=== PATIENT | female | born 1960 | race Caucasian/White ===

== ENCOUNTER → 2017-08-30 | Outpatient (CLI) | payer BC ==
[~2017-08-30] MED LIST: ATOR-22 PO; BIOF500T PO; CALC600T9 PO; METR500T PO; MISC1TAB PO; MULT-506 PO; PROB1TAB16 PO
== END | disposition home or self-care (01) ==
LOC: C.LABMFLN 11:25
PROVIDERS: ATTEND Physician Assistant
DX: R21 Rash and other nonspecific skin eruption (principal)

== ENCOUNTER → 2018-02-20 | Outpatient (CLI) | payer BC ==
[2018-02-20 18:14] LABS: INR 0.9 (0.9-1.1); PTT PATIENT 21.9 SECONDS (21.0-31.0)
== END | disposition home or self-care (01) ==
LOC: C.LABMFLN 16:09
PROVIDERS: ATTEND Physician Assistant
DX: Z01.818 Encounter for other preprocedural examination (principal)

== ENCOUNTER → 2018-06-07 | Outpatient (CLI) | payer BC | END | disposition home or self-care (01) | LOC: C.LABMFLN 09:32 | PROVIDERS: ATTEND Physician Assistant | DX: E78.5 Hyperlipidemia, unspecified (principal) ==

== ENCOUNTER 2022-09-28 06:03 | Observation (INO) ==
--- NOTE | 2022-09-07 14:55 | PAT Medication Instructions ---
Medication Instructions Date of Service September 07, 2022 Home Medications Medication Instructions Recorded diphenoxylate-atropine 2.5 2 tab PO TID PRN diarrhea #1 tab 06/08/ mg-0.025 mg tablet (Lomotil) propranolol 120 mg capsule,24 120 mg PO .COMPLEX #30 caps 10/12/ hr,extended release clobetasol 0.05 % scalp solution 1 applic topical .COMPLEX PRN 01/26/22 seborrheic dermatitis #50 mL atorvastatin 20 mg tablet 20 mg PO QPM #90 tabs 02/16/22 Lactobacillus acidophilus-Bifidobac.animalis 31 billion cell capsule 1 cap PO QPM acetaminophen 650 mg tablet,extended release 1,300 mg PO DAILY PRN Pain calcium carbonate 500 mg-vitamin D3 5 mcg (200 unit) tablet 1 tab PO BID metronidazole 500 mg tablet 500 mg PO PRN PRN ud ascorbate calcium (vitamin C) 500 mg tablet 500 mg PO QPM yfwqzohtybed-xhurxglz-twhenf tablet 1 tab PO QAM diphenoxylate-atropine 2.5 mg-0.025 mg tablet (Lomotil) 2 tab PO TID PRN diarrhea propranolol 120 mg capsule,24 hr,extended release 120 mg PO .COMPLEX pantoprazole 20 mg tablet,delayed release 40 mg PO QAM clobetasol 0.05 % scalp solution 1 applic topical .COMPLEX PRN seborrheic dermatitis atorvastatin 20 mg tablet 20 mg PO QPM ciprofloxacin HCl 500 mg tablet (Cipro) 500 mg PO BID PRN ud glucosamine-chondroitin 250 mg-200 mg tablet (Osteo Bi-Flex) 2 tab PO QAM ondansetron HCl 4 mg tablet 4 mg PO Q12H PRN Nausea tamsulosin 0.4 mg capsule 0.4 mg PO QPM acyclovir 400 mg tablet 400 mg PO QPM nitroglycerin 0.4 mg sublingual tablet 0.4 mg sublingual Q5M PRN Chest Pain Continue as directed metronidazole 500 mg tablet 500 mg PO PRN PRN ud ciprofloxacin HCl 500 mg tablet (Cipro) 500 mg PO BID PRN ud acyclovir 400 mg tablet 400 mg PO QPM nitroglycerin 0.4 mg sublingual tablet 0.4 mg sublingual Q5M PRN Chest Pain (if needed) clobetasol 0.05 % scalp solution 1 applic topical .COMPLEX PRN seborrheic dermatitis (if needed) STOP taking 2 weeks before surgery (or as soon as possible if surgery is within 2 weeks) glucosamine-chondroitin 250 mg-200 mg tablet (Osteo Bi-Flex) 2 tab PO QAM mzsixgkzgbjq-oiwhdwus-ykjchz tablet 1 tab PO QAM DO NOT take the morning of surgery calcium carbonate 500 mg-vitamin D3 5 mcg (200 unit) tablet 1 tab PO BID diphenoxylate-atropine 2.5 mg-0.025 mg tablet (Lomotil) 2 tab PO TID PRN diarrhea Take morning of surgery With a small sip of water, OTHERWISE NOTHING TO EAT OR DRINK AFTER MIDNIGHT: acetaminophen 650 mg tablet,extended release 1,300 mg PO DAILY PRN Pain (if needed) pantoprazole 20 mg tablet,delayed release 40 mg PO QAM ondansetron HCl 4 mg tablet 4 mg PO Q12H PRN Nausea (if needed) Take evening before surgery Lactobacillus acidophilus-Bifidobac.animalis 31 billion cell capsule 1 cap PO QPM acetaminophen 650 mg tablet,extended release 1,300 mg PO DAILY PRN Pain (if needed) calcium carbonate 500 mg-vitamin D3 5 mcg (200 unit) tablet 1 tab PO BID ascorbate calcium (vitamin C) 500 mg tablet 500 mg PO QPM diphenoxylate-atropine 2.5 mg-0.025 mg tablet (Lomotil) 2 tab PO TID PRN diarrhea (if needed) propranolol 120 mg capsule,24 hr,extended release 120 mg PO .COMPLEX atorvastatin 20 mg tablet 20 mg PO QPM ondansetron HCl 4 mg tablet 4 mg PO Q12H PRN Nausea (if needed) tamsulosin 0.4 mg capsule 0.4 mg PO QPM Other Notes If you have any questions please call us at [phone] or [phone] or [phone] or [phone]
--- NOTE | 2022-09-09 11:36 | Anesthesiology Consultation ---
Date of Service September 09, 2022 Assessment & Plan (1) Encounter for pre-operative examination: - s/p renal stone extraction and stent placement 09/06/22, abnormal UAs not repeated today. Pt has upcoming stent removal planned 09/13/22. Kera with [facility] made aware and they will further coordinate repeat UA and culture ordered by Dr. Herrmann at reported upcoming PCP clearance given ongoing urologic issues at this time. - PCP 08/24/22 [place]: "...kidney stone on left side...Continue medications prescribed and f/u with urology as scheduled. Hydronephrosis concurrent with and due to calculi of kidney and ureter: Lung nodule: Will order CT scan for f/u lung nodule in 6 months. Explained that this is incidental finding and common. They are followed usually for about 2 years for stability/change...Herpes simplex type 2 infection:Pt will restart daily suppressive therapy d/t recurrence of outbreaks without this medication. She will call for further problems..." Chart Review Chart Review: Acceptable Risk for Surgery and Patient seen in Pre Admission Testing Teaching & Discussion Pre-Anesthesia Teaching/Discussion Notes: Instructed NPO after midnight before surgery, except medications with 15 cc of water. Medication instructions provided according to the PAT guidelines. History Surgery Operation Date: 09/28/22 12:55 Proposed Procedures p C6-C7 Anterior Cervical Discectomy and Fusion with Stand Alone Spacer, Spinal Cord Monitoring - Jorgito Herrmann, DO Height/Weight Height: 5 ft 7 in Weight: 72.575 kg Allergies Allergy/AdvReac Type Severity Reaction Status Date / Time codeine Allergy Unknown N/V, Verified 09/03/22 13:25 severe body aches enoxaparin [From Lovenox] Allergy hives Verified 09/03/22 13:25 meperidine [From Demerol] Allergy nausea Verified 09/03/22 13:25 immuran Allergy nausea Uncoded 09/03/22 13:25 Medications Home Medications Medication Instructions Recorded Confirmed Last Taken Lactobacillus 1 cap PO QPM 05/07/19 09/03/22 Unknown acidophilus-Bifidobac.animalis 31 billion cell capsule acetaminophen 650 mg 1,300 mg PO DAILY PRN Pain 05/07/19 09/03/22 Unknown tablet,extended release calcium carbonate 500 mg-vitamin 1 tab PO BID 05/07/19 09/03/22 Unknown D3 5 mcg (200 unit) tablet metronidazole 500 mg tablet 500 mg PO PRN PRN ud 05/07/19 09/03/22 Unknown ascorbate calcium (vitamin C) 500 500 mg PO QPM 06/01/19 09/03/22 Unknown mg tablet afgypqcbogdg-rulehssq-disicv tablet 1 tab PO QAM 06/01/19 09/03/22 Unknown diphenoxylate-atropine 2.5 2 tab PO TID PRN diarrhea #1 tab 06/08/19 09/03/22 Unknown mg-0.025 mg tablet (Lomotil) propranolol 120 mg capsule,24 120 mg PO .COMPLEX #30 caps 10/12/21 09/03/22 Unknown hr,extended release pantoprazole 20 mg tablet,delayed 40 mg PO QAM 12/02/21 09/03/22 Unknown release clobetasol 0.05 % scalp solution 1 applic topical .COMPLEX PRN 01/26/22 09/03/22 Unknown seborrheic dermatitis #50 mL ciprofloxacin HCl 500 mg tablet 500 mg PO BID PRN ud 05/20/22 09/03/22 Unknown (Cipro) glucosamine-chondroitin 250 mg-200 2 tab PO QAM 05/20/22 09/03/22 Unknown mg tablet (Osteo Bi-Flex) ondansetron HCl 4 mg tablet 4 mg PO Q12H PRN Nausea 08/24/22 09/03/22 Unknown tamsulosin 0.4 mg capsule 0.4 mg PO QPM 08/24/22 09/03/22 Unknown acyclovir 400 mg tablet 400 mg PO QPM 09/03/22 09/03/22 Unknown nitroglycerin 0.4 mg sublingual 0.4 mg sublingual Q5M PRN Chest 09/03/22 09/03/22 Unknown tablet Pain atorvastatin 20 mg tablet 20 mg PO QPM #90 tabs 09/09/22 Unknown Past Medical History Medical History (Updated 09/09/22 @ 11:40 by Risa Dyer PA-C) Chronic headache reason for propranolol GERD (gastroesophageal reflux disease) controlled, stable per pt Hiatal hernia History of cervical cancer 1994 treated surgically History of nephrolithiasis Hyperlipidemia Kidney stone at present --- planning for cystoscopy with stone extraction 09/06 GHS- stent in place with planned removal 09/13 PONV (postoperative nausea and vomiting) denies needing scop patch Ulcerative colitis hx Ureteral stent present Patient denies h/o stroke, seizures, heart attack, heart failure, DM, HTN, blood clots or blood transfusions. Exercise / Class Metabolic Activity II 4-5 Yardwork/Stairs/Walk up hill (denies CP or SOB with 1 FOS) Past Family History Family History Mother Diabetes Breast cancer Stroke Grandmother Diabetes Myocardial infarction Breast cancer Father Heart disease Myocardial infarction Daughter Cancer Other No family history of adverse response to anesthesia Denies family history of Ovarian cancer Prostate cancer Colorectal cancer Hypertension Past Surgical History Surgical History (Updated 09/09/22 @ 11:41 by Risa Dyer PA-C) H/O arthroscopic knee surgery bilateral H/O breast biopsy benign H/O section x2 H/O hemorrhoidectomy H/O shoulder surgery left Dr. Ko History of bowel resection History of colonoscopy History of conization of cervix History of cystoscopy History of esophagogastroduodenoscopy (EGD) History of ileostomy History of lithotripsy History of reversal of ileostomy S/P foot surgery, right Past Anesthesia History No Hx of Anesthesia Complications and No Family Hx of Anesthesia Complications History of PONV No Hx of Motion Sickness and History of PONV (denies needing scop patch) STOP BANG Total 1 Social History Smoking Status: Former smoker Do You Dip or Chew Tobacco: No Smoking End Date: years ago Hx Alcohol Use: No Hx Substance Use: No substance use type: does not use Review of Systems Snoring, denies witnessed apneas. Patient denies chest pain, shortness of breath, dyspnea on exertion, fever, chills, cough, wheezing, or palpitations. Physical Exam Vital Signs Vitals BP 106/72 P 72 TEMP 97.9 SP02 97% on RA RESP 17 Physical Full cervical extension range of motion without pain TMD 3.5 finger breadths Mallampati Score 3 Dentition: intact, front lower partial, several caps throughout; denies chipped or loose teeth, crowns, implants or bridges Lungs: normal respiratory effort. Clear throughout to auscultation, no adventitious breath sounds Cardiac: regular rate and rhythm, no murmurs noted Carotid arteries: negative bruit bilat Lab Results Anesthesia Preop Results Results Anesthesia Widget: WBC 5.81 K/ul (4.8-10.8) 09/09/22 Hgb 13.8 g/dl (12.0-16.0) 09/09/22 Hct 41.7 % (34.1-44.9) 09/09/22 Plt 320 K/uL (130-400) 09/09/22 Na 140 mmol/L (136-145) 09/09/22 K 4.2 mmol/L (3.5-5.1) 09/09/22 Cl 105 mmol/L (98-107) 09/09/22 CO2 30 mmol/L (21-32) 09/09/22 BUN 13 mg/dl (6-23) 09/09/22 Creat 0.71 mg/dl (0.6-1.2) 09/09/22 Glucose Level 108 mg/dl (70-99(Fasting)) H 09/09/22 PT 9.7 Seconds (9.0-12.0) 09/09/22 PTT 23.2 Seconds (21.0-31.0) 09/09/22 INR 0.9 (0.9-1.1) 09/09/22 Blood Type AB Positive 09/09/22 Antibody Screen NEGATIVE 09/09/22 Testing Laboratory Results 08/30/22 urine culture: no significant growth UA: cloudy, large blood, > 300 protein, moderate esterase, 50+ RBC, 50+ WBC, 1-4 calcium oxalate, hyaline cast 1-4, bacteria 0-25 Electrocardiogram Date: 09/09/22 NSR, rate 74 bpm Chest X-Ray Date: 09/09/22 No acute chest disease. Stress Test Date: 05/23/17 Exercise MPHR 98% METS 8 Normal without resting LV wall motion abnormalities or inducible ischemia EF 65% Cervical Spine Date: 05/20/22 x-ray Moderate degenerative change of the cervical spine CT 10/13/[address] of neck Other Testing CT abdomen pelvis 08/15/22 9 x 5 mm obstructing stone at the left UVJ with moderate hydronephrosis 7 mm right middle lobe pulmonary nodule COVID-19 Risk Screen Screening Information COVID-19 Screen Date: 09/09/22 Exposure 21 Days Family/Household +COVID Last 21 Days: No Exposure 10 Days Any COVID Exposure Last 10 Days: No Symptoms Last 10 Days Experienced COVID Sx Last 10 Days: No + COVID 0-90 Days COVID + in Last 0-90 Days: No
[~2022-09-28 06:03] MED LIST changes: +ACETAMINOPHEN 500 MG TAB PO SCH; -ATOR-22 PO; -BIOF500T PO; -CALC600T9 PO; +CeleBREX 200 MG CAP PO SCH; +GABAPENTIN 600 MG DOSE PO SCH; +LR 15ML/HR IV SCH; -METR500T PO; -MISC1TAB PO; -MULT-506 PO; -PROB1TAB16 PO; +ceFAZolin 2000MG 2,000 MG/15 ML SYR IV SCH
[2022-09-28] MEDS ORDERED: MIDAZOLAM HCL 1 MG/ML 2ML VIAL ONE (07:00)
[2022-09-28] MEDS ORDERED: KETAMINE 50 MG/5 ML SYRINGE ONE (07:00)
[2022-09-28] MEDS ORDERED: DEXAMETHASONE SOD INJ 4 MG/ML VIAL ONE (07:00)
[2022-09-28] MEDS ORDERED: LIDOCAINE 2% MPF LOCAL 5 ML VIAL INFIL ONE (07:00)
[2022-09-28] MEDS ORDERED: ONDANSETRON INJ 2 MG/ML 2 ML VIAL ONE ×2 (07:00→09:53)
[2022-09-28] MEDS ORDERED: fentaNYL citrate 100 MCG/2 ML VIAL ONE ×2 (07:00→08:28)
[2022-09-28] MEDS ORDERED: PROPOFOL IV EMULSION 10 MG/ML 20 ML VIAL IV ONE (07:00)
[2022-09-28] MEDS ORDERED: ceFAZolin 330 MG/ML 1 GM VIAL ONE (07:07)
[2022-09-28] MEDS ORDERED: DexMEDEtomidine HCL IV 100 MCG/ML VIAL IV ONE (07:11)
[2022-09-28] MEDS ORDERED: ATROPINE SULFATE 0.1 MG/ML 10ML SYR IV PRN (07:27)
[2022-09-28] MEDS ORDERED: ONDANSETRON INJ 2 MG/ML 2 ML VIAL IV PRN ×2 (07:27→10:42)
[2022-09-28] MEDS ORDERED: ePHEDrine sulfate 50 MG/ML AMP IV PRN (07:27)
--- NOTE | 2022-09-28 07:29 | History & Physical Bridge Note ---
Date of Service September 28, 2022 History & Physical Bridge Note I have examined the patient, reviewed the History & Physical and in the interval since the performance of the History & Physical I have noted the following changes of clinical significance: no changes noted
[2022-09-28] MEDS ORDERED: SCOPOLAMINE 1 MG TDSY TD ONE (07:31)
--- NOTE | 2022-09-28 07:31 | History & Physical Report ---
Date of Service September 28, 2022 Assessment & Plan (1) Cervical stenosis of spinal canal: Plan: C6-C7 anterior cervical discectomy and fusion with stand-alone spacer History of Present Illness Chief Complaint: Neck and arm pain Primary Care Provider: Debi Griffin DO This is a 61-year-old female presents with chronic persistent neck and arm pain after failing such course. She is here for surgical invention. Allergies Allergy/AdvReac Type Severity Reaction Status Date / Time codeine Allergy Unknown N/V, Verified 09/28/22 06:30 severe body aches enoxaparin [From Lovenox] Allergy hives Verified 09/28/22 06:30 meperidine [From Demerol] Allergy nausea Verified 09/28/22 06:30 azathioprine [From Imuran] AdvReac Nausea Verified 09/28/22 06:30 Home Medications Medication Instructions Recorded Confirmed Type Lactobacillus 1 cap PO QPM 05/07/19 09/28/22 History acidophilus-Bifidobac.animalis 31 billion cell capsule acetaminophen 650 mg 1,300 mg PO DAILY PRN Pain 05/07/19 09/28/22 History tablet,extended release calcium carbonate 500 mg-vitamin 1 tab PO BID 05/07/19 09/28/22 History D3 5 mcg (200 unit) tablet metronidazole 500 mg tablet 500 mg PO PRN PRN ud 05/07/19 09/28/22 History ascorbate calcium (vitamin C) 500 500 mg PO QPM 06/01/19 09/28/22 History mg tablet qrvtmibdnryy-lsrkhsom-oumfzw tablet 1 tab PO QAM 06/01/19 09/28/22 History diphenoxylate-atropine 2.5 2 tab PO TID PRN diarrhea #1 tab 06/08/19 09/28/22 Rx mg-0.025 mg tablet (Lomotil) propranolol 120 mg capsule,24 120 mg PO .COMPLEX #30 caps 10/12/21 09/28/22 Rx hr,extended release pantoprazole 20 mg tablet,delayed 40 mg PO QAM 12/02/21 09/28/22 History release clobetasol 0.05 % scalp solution 1 applic topical .COMPLEX PRN 01/26/22 09/28/22 Rx seborrheic dermatitis #50 mL ciprofloxacin HCl 500 mg tablet 500 mg PO BID PRN ud 05/20/22 09/28/22 History (Cipro) glucosamine-chondroitin 250 mg-200 2 tab PO QAM 05/20/22 09/28/22 History mg tablet (Osteo Bi-Flex) ondansetron HCl 4 mg tablet 4 mg PO Q12H PRN Nausea 08/24/22 09/28/22 History acyclovir 400 mg tablet 400 mg PO QPM 09/03/22 09/28/22 History atorvastatin 20 mg tablet 20 mg PO QPM #90 tabs 09/09/22 09/28/22 Rx Past Med/Surg History Medical History (Updated 09/28/22 @ 07:30 by Jorgito Herrmann DO) Cluster headaches Uses Propranolol GERD (gastroesophageal reflux disease) controlled, stable per pt Hiatal hernia History of cervical cancer 1994 treated surgically History of nephrolithiasis (~08/2022) S/P ureteral stent placement 08/2022 Hyperlipidemia PONV (postoperative nausea and vomiting) denies needing scop patch Ulcerative colitis Surgical History H/O arthroscopic knee surgery bilateral H/O breast biopsy benign H/O section x2 H/O hemorrhoidectomy H/O shoulder surgery left Dr. oK History of bowel resection History of colonoscopy History of conization of cervix History of cystoscopy History of esophagogastroduodenoscopy (EGD) History of ileostomy History of lithotripsy History of reversal of ileostomy S/P foot surgery, right Family History Mother Diabetes Breast cancer Stroke Grandmother Diabetes Myocardial infarction Breast cancer Father Heart disease Myocardial infarction Daughter Cancer Other No family history of adverse response to anesthesia Denies family history of Ovarian cancer Prostate cancer Colorectal cancer Hypertension Social History Smoking Status: Former smoker Smoking End Date: years ago; Second Hand Exposure: No; Do You Dip or Chew Tobacco: No; Tobacco Cessation Education Requested by Patient: No Hx Alcohol Use: No Hx Substance Use: No Preferred Language: French Communication Ability: Effective Visual Impairment: No Limitations Hearing Ability: Normal Speech Language Pathologist Prn Required: No Beliefs That Will Affect Care: None marital status: Current Living Situation: Spouse current occupational status: employed How many Children do You have: 2 How many Children do You have Comment: 1 living Feels Safe at Home: Yes Safety Concerns: Feels Safe At This Time Childhood Exposure to Second-Hand Smoke: No caffeine: Yes during the past year weight has: remained stable Dental Care, Regularly: Yes Physical Activity Frequency: 3-4 Times per Week Seatbelt Use: always Sunscreen Use: Yes (sometimes) Assistive Devices: Denture - Lower and Glasses Assistive Devices Comment: lower partial Physical Exam Physical Exam: Patient is alert and oriented Heart regular rhythm Lungs clear Results & Data Results & Data ([facility]) Vital Signs (Past 12 Hours) Vital Signs Temp Pulse Resp BP Pulse Ox O2 Del Method 09/28/22 06:24 36.8 C 69 20 132/79 100 Room Air
[2022-09-28] MEDS ORDERED: ROCURONIUM BROMIDE 10 MG/ML 5 ML VIAL IV ONE (08:31)
[2022-09-28] MEDS ORDERED: NEOSTIGMINE METHYLSULFATE 1 MG/ML 10ML VIAL ONE (08:42)
[2022-09-28] MEDS ORDERED: ePHEDrine sulfate 50 MG/ML AMP ONE (08:47)
[2022-09-28] MEDS ORDERED: GLYCOPYRROLATE 0.2 MG/ML VIAL ONE (08:47)
--- NOTE | 2022-09-28 09:01 | Operative Report ---
Post Operative Report Pre & Post Diagnosis Operation Date: 09/28/22 07:45 Pre-Op Diagnosis: Spondylosis with Radiculopathy, Cervical Region Post-Op Diagnosis: Spondylosis with Radiculopathy, Cervical Region I identified the patient and participated in the time-out.: Yes Procedure Operation Date: 09/28/22 07:45 Actual Procedures #1 anterior cervical discectomy with bilateral foraminotomies C6-C7. #2 anterior cervical arthrodesis C6-C7. #3 placement of globus coalition cage 7 mm in height filled with I factor at C6-C7. Surgeon Jorgito Herrmann, Station Superintendent Izzy Shin Estimated Blood Loss 10 Findings Consistent with Post-Op Diagnosis Specimens None Indications This is a 61-year-old female presents with above-mentioned diagnosis after failed course of nonoperative care she is here for surgical invention. Description of Procedure Patient was met with identified informed consent obtained. Patient was then taken to the operative suite underwent patient placed in supine position Joselito table head Orozco lepe. All bony prominences well-padded eyes inspected to ensure no external pressure placed upon the. This point the anterior cervical spine was prepped and draped in normal sterile fashion. With assistance of fluoroscopy identify the C6-C7 disc base and a transverse incision was placed on along the right anterior aspect of the cervical spine overlying his region. Blunt dissection with assistance of bipolar cautery was then performed down to and exposing the anterior cervical spine at C6-C7. A self-retaining retractor was placed. Then performed a complete discectomy of C6-7 out to the uncovertebral joints bilaterally. Seagraves distracting pins utilized to assist in visualization. Removed all posterior annular fibers longitudinal ligament bilateral foraminotomies performed. Endplates burred to subcortical bleeding bone and a 7 mm globus coalition cage filled with I factor tapped in position and screwed into place with fluoroscopic assistance. The incision was then copiously irrigated explored to ensure no damage to surrounding structures or remaining bleeding. 10 round ASIA drain inserted. The incision was then closed with 2 Vicryl in a fashion of 4 Monocryl for final skin closure. Steri-Strip sterile dressing placed. Patient waken taken to PACU in stable condition. Please note spinal cord monitoring was utilized at the procedure no changes noted. Lastly Izzy Shin was present at the entire surgeon while the patient positioning complex portions of the surgery and final skin closure. I attest to the content of the Intraoperative Record and any orders documented therein. Any exceptions are noted below.
[2022-09-28] MEDS: fentaNYL citrate 100 MCG/2 ML VIAL IV PRN ×4 (09:21→09:36)
[2022-09-28] MEDS: HYDROmorphone INJ 1 MG/ML SYRINGE IV PRN ×4 (09:41→09:56)
--- NOTE | 2022-09-28 09:52 | Fluoroscopy Report ---
INTRAOPERATIVE RADIOGRAPHS CLINICAL HISTORY: Cervical spinal fusion. Fluoroscopy time: 16 seconds. FINDINGS: 3 spot fluoroscopic views of the cervical spine are presented. There has been discectomy at C6-C7 with anterior fusion at this level. This orthopedic hardware appears intact. An endotracheal t ube is in place. IMPRESSION: Intraoperative images from cervical spinal fusion surgery as above. Electronically signed by: Justin Sheridan M.D. 09/28/2022 9:51 AM
[2022-09-28] MEDS ORDERED: oxyCODONE HCL IR 5 MG TAB (IMMEDIATE RELEASE) PO PRN (10:42)
[2022-09-28] MEDS ORDERED: RACEPINEPHRINE 2.25% NEBU SOLN 0.5 ML VIAL INH PRN (10:42)
[2022-09-28] MEDS ORDERED: DIPHENOXYLATE/ATROPINE 2.5/0.025MG TAB PO PRN (10:42)
[2022-09-28] MEDS ORDERED: ONDANSETRON 4 MG OD TAB PO PRN (10:42)
[2022-09-28] MEDS ORDERED: METOCLOPRAMIDE HCL INJ 5 MG/ML 2 ML VIAL IV PRN (10:42)
[2022-09-28] MEDS ORDERED: traMADol HCL 50 MG TABLET PO PRN (10:42)
[2022-09-28] MEDS ORDERED: NALOXONE HCL 0.4 MG/1 ML VIAL/CARP IV PRN (10:42)
[2022-09-28] MEDS ORDERED: PROMETHAZINE HCL 12.5 MG in SODIUM CHLORIDE 0.9% 50 ML IV PRN (10:42)
[2022-09-28] MEDS ORDERED: FAMOTIDINE 20 MG TAB PO PRN (10:42)
[2022-09-28] MEDS ORDERED: ALUMINUM/MAGNESIUM SUSP 30 ML UDC PO PRN (10:42)
[2022-09-28] MEDS ORDERED: dexAMETHasone 8 MG in SYRINGE 0 ML IV PRN (10:42)
[2022-09-28] MEDS ORDERED: bisacodyL 10 MG SUPP PR PRN (10:42)
[2022-09-28] MEDS ORDERED: LORazepam 0.5 MG TAB PO PRN (10:42)
[2022-09-28] MEDS ORDERED: hydrOXYzine HCl 25 MG TAB PO PRN (10:42)
[2022-09-28] MEDS ORDERED: HYDROmorphone INJ 0.5 MG/0.5 ML SYR IV PRN (10:42)
[2022-09-28] MEDS ORDERED: HYDROmorphone INJ 1 MG/ML SYRINGE IV PRN (10:42)
[2022-09-28] MEDS ORDERED: diphenhydrAMINE Capsule 25 MG CAP PO PRN (10:42)
[2022-09-28] MEDS ORDERED: LORazepam 0.5 MG in SYRINGE 0 ML IV PRN (10:42)
[2022-09-28] MEDS ORDERED: SOD PHOSPHATE/SOD BIPHOSPHATE ENEMA 132 ML BTL PR PRN (10:42)
[2022-09-28] MEDS ORDERED: MAGNESIUM HYDROXIDE SUSP 30 ML UDC PO PRN (10:42)
[2022-09-28] MEDS ORDERED: ACETAMINOPHEN 1,000 MG/100 ML VIAL IV PRN (10:42)
[2022-09-28] MEDS: LACTATED RINGER'S 1,000 ML IV SCH ×2 (11:12→21:17)
--- NOTE | 2022-09-28 13:07 | Anesthesiology Progress Note ---
Date of Service September 28, 2022 Anesthesia Post Procedure Vital Signs Vital Signs: Temp Pulse Pulse Resp BP Pulse Ox Pulse Ox 09/28/22 12:32 36.4 C L 88 16 127/78 98 09/28/22 10:42 98 09/28/22 11:34 35.8 C L 75 16 123/75 98 09/28/22 11:00 36.3 C L 74 16 123/73 99 09/28/22 10:30 36.6 C 83 14 117/75 98 09/28/22 10:10 36.3 C L 74 16 121/70 98 09/28/22 10:00 81 20 124/68 99 09/28/22 09:50 71 20 130/67 98 09/28/22 09:40 80 24 127/70 100 09/28/22 09:30 79 20 134/71 100 09/28/22 09:20 73 16 137/74 100 09/28/22 09:12 36.0 C L 79 16 127/71 100 09/28/22 06:24 36.8 C 69 20 132/79 100 O2 Del Method O2 Del Method O2 Flow Rate O2 Flow Rate 09/28/22 12:32 Nasal Cannula 2 09/28/22 10:42 Nasal Cannula 2 09/28/22 11:34 Nasal Cannula 2 09/28/22 11:00 Nasal Cannula 2 09/28/22 10:30 Nasal Cannula 2 09/28/22 10:10 Nasal Cannula 2 09/28/22 10:00 Nasal Cannula 2 09/28/22 09:50 Nasal Cannula 2 09/28/22 09:40 Nasal Cannula 2 09/28/22 09:30 Oxymask 5 09/28/22 09:20 Oxymask 5 09/28/22 09:12 Oxymask 5 09/28/22 06:24 Room Air Pain Intensity Lower Neck: Pain Intensity: 3 Posterior Neck: Pain Intensity: 4 Transfer of Care Handoff Completed per policy Notes Mental Status: alert / awake / arousable and participated in evaluation Patient Amnestic to Procedure: Yes Nausea / Vomiting: adequately controlled Pain: adequately controlled Airway Patency, RR, SpO2: stable & adequate BP & HR: stable & adequate Hydration State: stable & adequate Anesthetic Complications: no major complications apparent
[2022-09-28] MEDS: ACETAMINOPHEN 500 MG TAB PO PRN (15:11)
[2022-09-28] MEDS: ceFAZolin 1000MG 1,000 MG/7.5 ML SYR IV SCH ×2 (15:30→23:17)
[2022-09-28] MEDS: CHECK SCOPOLAMINE PATCH PLACEMENT SCH (16:11)
[2022-09-28] MEDS: CALCIUM CARBONATE 1250MG TAB PO SCH (19:45)
[2022-09-28] MEDS: CHOLECALCIFEROL 400 UNITS 10 MCG TAB PO SCH (19:46)
[2022-09-28] MEDS ORDERED: ATORVASTATIN 20 MG TAB PO SCH (21:00)
[2022-09-28] MEDS ORDERED: ADVANCED PROBIOTIC 1250 MG CAPSULE PO SCH (21:00)
[2022-09-28] MEDS ORDERED: ACYCLOVIR 400 MG TAB PO SCH (21:00)
[2022-09-28] MEDS ORDERED: ASCORBIC ACID 500 MG TAB PO SCH (21:00)
[2022-09-28] MEDS ORDERED: PROPRANOLOL HCL 60 MG LA CAP PO SCH (21:00)
[2022-09-28] MEDS ORDERED: DOCUSATE SODIUM/SENNA 50/8.6MG TAB PO SCH (21:00)
[2022-09-29] MEDS: CHECK SCOPOLAMINE PATCH PLACEMENT SCH ×2 (00:10→09:00)
[2022-09-29] MEDS: ACETAMINOPHEN 500 MG TAB PO PRN ×2 (01:43→10:24)
[2022-09-29] MEDS ORDERED: POLYETHYLENE (MIRALAX) 17 GM PACK PO SCH (06:00)
--- NOTE | 2022-09-29 08:42 | Discharge Summary ---
Date of Service September 29, 2022 Admission HPI Per Admitting Provider This is a 61-year-old female presents with chronic persistent neck and arm pain after failing such course. She is here for surgical invention. Admission Exam (Per Admitting) Constitutional + thin Eyes normal visual webster by confrontation ENMT external ear and nose normal, oropharynx normal Neck normal visual inspection Respiratory normal respiratory effort Cardiovascular Extremities: normal capillary refill Gastrointestinal (Abdomen) Inspection/Auscultation: abdomen normal to inspection Musculoskeletal Spine: + pain with cervical ROM Extremities: extremities normal to inspection Skin no rashes, warm and dry Neurologic normal touch/pain/proprioception and moves all extremities Psychiatric A+Ox3, euthymic affect Apperance: appropriately dressed Eye Contact: good eye contact Discharge Data Procedures Performed Operation Date: 09/28/22 07:45 Actual Procedures p C6-C7 Anterior Cervical Discectomy and Fusion with Stand Alone Spacer, Spinal Cord Monitoring(Not Applicable) - Jorgito Herrmann, DO Hospital Course (1) Cervical stenosis of spinal canal: Patient is being discharged home on postoperative day 1 status post ACDF C6-7. She had an uneventful hospital course. Arm symptoms improved. She has some mild dysphagia but is tolerating a soft diet. She is up and amatory to the restroom. Discharge Instructions ACTIVITY RECOMMENDATIONS: SELF CARE INSTRUCTIONS AFTER CERVICAL FUSIONS 1. No smoking. Smoking drastically decreases the chance of a solid fusion. 2. No bending, lifting more than 5 pounds, or twisting (roll like a log when turning in bed). 3. You may shower 3 days after surgery. Thoroughly dry wound. Do not soak in the tub. 4. Cervical collar: Must be worn at all times including sleeping. You may remove the brace only to bath, eat and if you are sitting in a recliner. 5. Please walk as much as you can for exercise. Gradually increase the distance that you walk as your endurance increases. SPECIAL CARE INSTRUCTIONS: VERY IMPORTANT TO READ AND REVIEW A. Do not take any anti-inflammatory medications (i.e. Indocin, Advil, Aspirin, Naprosyn, Aleve, Motrin, etc.) as these may inhibit the chance of a solid fusion. Tylenol is okay to take. B. Your surgical incision has been closed with a cosmetic suture under the skin that will dissolve in about 6 weeks. In 14 days, you can use a pair of clean scissors and cut the suture that is left outside of the skin at the ends of your incision. C. Complications are uncommon, but please contact us if you have any signs or symptoms of: 1. wound infection (fever higher than 102.5 degrees F, redness, separation of wound, drainage, or increasing pain from the incision) 2. blood clots in legs (pain, swelling, redness and warmth in legs) 3. urinary tract infection (fever higher than 102.5 degrees, burning upon urination or increased frequency of urination) 4. nerve problems (inability to walk on your toes or heels, numbness, loss of bowel or bladder control) 5. any other symptoms that concern you. D. Please call the office at if you have any concerns or questions about your operation or recovery. MANAGING PAIN AFTER SPINAL SURGERY 1. Narcotic medication is intended for short-term use and will be provided for surgical pain. Surgical pain usually lasts for a period of 4-6 weeks. Narcotic medication includes Percocet, Vicodin, Darvocet, Tylenol #3 or Lortab. 2. Longer-term pain is more appropriately treated with non-narcotic medication such as Tylenol ES. 3. Muscle spasm is not appropriately treated with narcotics. Muscle relaxers such as Soma, Flexeril or Skelaxin can be used along with Tylenol ES. 4. Remember that we all live with some "aches and pains". This is not unusual or uncommon after an injury or as we get older. 5. We will provide appropriate medication within the normal guidelines of their prescribed use. We will also be very cautious and aware of potential abuse and extended duration of patients' medication needs. 6. Please allow 2-3 days to process refills. Prescriptions will not be mailed but must be picked up at the office. FOLLOW UP VISIT: Keep your scheduled follow-up appointment. Any questions, please call the office at .
[2022-09-29] MEDS ORDERED: PANTOprazole 40 MG TAB PO SCH (09:00)
[2022-09-29] MEDS ORDERED: dexAMETHasone 6 MG in SYRINGE 0 ML IV SCH (09:00)
[2022-09-29] MEDS: CHOLECALCIFEROL 400 UNITS 10 MCG TAB PO SCH (09:00)
[2022-09-29] MEDS: CALCIUM CARBONATE 1250MG TAB PO SCH (09:01)
== END 2022-09-29 10:37 | disposition home or self-care (01) ==
LOC: ASU 06:03 → INTOOBSV 09:05 → 3E 09:05